=== PATIENT | male | born 1945 | race Caucasian/White ===

== ENCOUNTER → 2024-05-06 | Outpatient (CLI) | payer MEDICARE, OTHER, SELFPAY ==
--- NOTE | 2024-05-06 10:25 | XR_ITS ---
Examination: Left knee 2 views Technique one AP lateral left knee 2 views Exam date and time: May 06, 2024 at 11:17 AM INDICATIONS: Twisting injury with fall 8 weeks ago FINDINGS: Thickened osteopenia No fracture or dislocation No foreign body IMPRESSION: No fracture visualized Suggest follow-up axial view of the patella as clinically warranted
== END | disposition home or self-care (01) ==
PROVIDERS: PCP Family Medicine; Referring Provider Family Medicine; Visit Provider Family Medicine
DX: S89.92XA Unspecified injury of left lower leg, initial encounter (principal); W19.XXXA Unspecified fall, initial encounter
CPT/HCPCS: 73560

== ENCOUNTER → 2025-01-13 | Outpatient (CLI) | payer MEDICARE, OTHER, SELFPAY ==
--- NOTE | 2025-01-13 12:07 | XR_ITS ---
Examination: Retroperitoneal ultrasound, complete Technique: Multiple high resolution grayscale images of the retroperitoneum obtained, including kidneys and bladder. Exam date and time:2024, 1240 hours INDICATIONS: Acute renal failure on laboratory examination 2 weeks ago. FINDINGS: Right kidney 11.7 cm cortex 1.6 cm Left kidney 13.2 cm cortex 1.6 cm Moderate renal parenchymal scar formation. No hydronephrosis. No bladder mass or bladder calculi. Bladder prevoid volume 326 cc postvoid volume 14 cc Negative for prostatomegaly, negative for prostate nodules IMPRESSION: Bilateral renal cortical thinning Moderate bilateral renal parenchymal scar formation
== END | disposition home or self-care (01) ==
PROVIDERS: PCP Internal Medicine; Referring Provider Internal Medicine; Visit Provider Internal Medicine
DX: N28.89 Other specified disorders of kidney and ureter (principal)
CPT/HCPCS: 76770